=== PATIENT | male | born 1955 | race Caucasian/White ===

== ENCOUNTER 2023-08-25 07:21 | Outpatient (CLI) | payer OTHER | END 2023-08-25 07:22 | disposition home or self-care (01) | LOC: CSHCP 07:21 | PROVIDERS: ATTEND Internal Medicine | DX: R06.09 Other forms of dyspnea (principal); J98.4 Other disorders of lung | CPT/HCPCS: 94010; 94726; 94729; 94760 ==

== ENCOUNTER 2023-08-25 12:55 | Outpatient (CLI) | payer OTHER | END 2023-08-25 12:56 | disposition home or self-care (01) | LOC: CSHCT 12:55 | PROVIDERS: ATTEND Internal Medicine | DX: J84.89 Other specified interstitial pulmonary diseases (principal); R91.1 Solitary pulmonary nodule; J98.4 Other disorders of lung | CPT/HCPCS: 71250 ==

== ENCOUNTER 2023-09-06 13:48 | Outpatient (CLI) | payer OTHER | END 2023-09-06 13:49 | disposition home or self-care (01) | LOC: CSHCP 13:48 | PROVIDERS: ATTEND Internal Medicine | DX: J84.112 Idiopathic pulmonary fibrosis (principal) | CPT/HCPCS: 94618 ==